=== PATIENT | male | born 1980 | race Caucasian/White ===

== ENCOUNTER 2022-03-13 15:22 | Emergency (ER) | payer OTHER, SELFPAY ==
--- NOTE | ~2022-03-13 | XR_ITS ---
EXAMINATION: XR knee RT 3V DATE: 03/13/2022 16:31 INDICATION: Right knee pain TECHNIQUE: Four views of the right knee were obtained. COMPARISON: None. FINDINGS: Alignment is normal. No fracture or osteochondral lesion. Joint spaces are normal with no e rosions. No joint effusion/synovitis. Soft tissues are unremarkable. IMPRESSION: 1. No acute osseous abnormality. Reviewed, dictated and finalized at location B.
[2022-03-13 15:34] VITALS: BP 110/71; PULSE 62; RESP 15; TEMP 36.7; O2SAT 98
--- NOTE | 2022-03-13 16:47 | ED.LOWEXIN ---
HPI - Extremity Injury (Lower) General Chief Complaint: Extremity Injury, Lower Stated Complaint: knee injury/fall Time Seen by Provider: 03/13/22 16:06 History of Present Illness HPI Narrative: Patient is a 41-year-old male here for evaluation of right knee pain for the past week. Patient states that while he was playing hockey, he landed on the right knee in flexion on the ice. He denies any head injury or loss of consciousness. States he has been walking on the knee ever since, but has been painful. The pain is most severe when he goes from seated to standing. He has not attempted any medication for his pain. Denies fevers, chills, numbness, tingling, weakness in the leg. Related Data Allergies Allergy/AdvReac Type Severity Reaction Status Date / Time No Known Allergies Allergy Verified 03/08/19 17:10 Review of Systems Review of Systems: Gen.: Denies fevers or chills Eyes: Denies eye pain or visual change ENT: Denies congestion Respiratory: Denies shortness of breath or cough CV: Denies chest pain or palpitations GI: Denies abdominal pain nausea, emesis or diarrhea denies burning, urgency, frequency or hematuria Musculoskeletal: Reports right knee pain Neuro: Denies numbness, tingling, weakness or focal weakness Skin: Denies rash Except as documented, all other systems reviewed and negative Exam Narrative: APPEARANCE: Well appearing, no pain in distress, well-nourished. Head: Normocephalic and atraumatic. EYES: PERRLA/EOMI, conjunctivae clear NOSE: No nasal drainage EARS: External ear normal in appearance THROAT: Oropharynx is clear. Mucous membranes are moist. NECK: Supple. No adenopathy, no masses. RESPIRATORY: Airway patent, respirations nonlabored. Clear to auscultation bilaterally, no rales, rhonchi, wheezing. CARDIOVASCULAR: 2+ DP and PT pulses bilaterally. Regular rate and rhythm without murmurs, rubs, or gallops. ABDOMINAL: Normoactive bowel sounds. Soft, nontender, nondistended. No rebound tenderness or guarding. MUSCULOSKELETAL: Bony tenderness over the patella. No tenderness along the joint line. Full active range of motion in right knee, discomfort noted with extension. No edema. No ballottement or warmth to knee. Anterior and posterior drawer test negative. No ligamentous laxity noted with valgus or varus stress. NEURO: Normal speech. No focal neurologic deficits. SKIN: Skin is warm and dry. No rashes. PSYCHIATRIC: Normal affect/mood. Course Vital Signs Vital signs: Vital Signs Temperature 98.1 F 03/13/22 15:34 Pulse Rate 62 03/13/22 15:34 Respiratory Rate 15 03/13/22 15:34 Blood Pressure 110/71 03/13/22 15:34 Pulse Oximetry 98 03/13/22 15:34 Oxygen Delivery Room Air 03/13/22 15:34 Temperature 98.1 F 03/13/22 15:34 Pulse Rate 62 03/13/22 15:34 Respiratory Rate 15 03/13/22 15:34 Blood Pressure 110/71 03/13/22 15:34 Pulse Oximetry 98 03/13/22 15:34 Oxygen Delivery Room Air 03/13/22 15:34 MDM - Extremity Injury (Lower) MDM Narrative Medical decision making narrative: Patient presents with right knee pain after a fall last week. Given history, exam and workup patient likely has arthritis or possible ligamentous injury such as meniscus tear. Given that he is weightbearing and is able to move the knee, have low suspicion for septic arthritis, gonococcal arthropathy, or gout flare. His anterior and posterior drawer test are negative, doubt ACL/PCL tear. His plain films in the ED were negative for acute process. He was encouraged to wear a knee brace, use anti-inflammatories as needed for pain, and provided with a PCP to follow-up with. Did provide him with an orthopedist number in case he cannot get into the PCP in time. Return precautions discussed and he voiced understanding. Discharge Plan Discharge Clinical Impression: Acute knee pain Patient Disposition: Home, Self-Care Condition: Stable Instructions: Antibiotic Form, Knee Pain (
== END 2022-03-13 17:15 | disposition home or self-care (01) ==
PROVIDERS: Emergency Provider Emergency Medicine
DX: S89.91XA Unspecified injury of right lower leg, initial encounter (principal); V00.211A Fall from ice-skates, initial encounter; Y93.22 Activity, ice hockey
CPT/HCPCS: 73562; 99283